=== PATIENT | male | born 1975 | race African-American/Black ===

== ENCOUNTER 2016-10-24 14:05 | Emergency (ER) | payer BC ==
[2016-10-24 14:11] VITALS: TEMP 100; BMI 33.3
[2016-10-24 14:55] LABS: URINE APPEARANCE CLEAR; URINE BILIRUBIN NEGATIVE (NEGATIVE); URINE BLOOD NEGATIVE (NEGATIVE); URINE COLOR LTYELLOW; URINE GLUCOSE (UA) NEGATIVE (NEGATIVE); URINE KETONE NEGATIVE (NEGATIVE); URINE LEUK ESTERASE NEGATIVE (NEGATIVE); URINE NITRITE NEGATIVE (NEGATIVE); URINE PROTEIN NEGATIVE (NEGATIVE); URINE UROBILINOGEN NEGATIVE E.U./dl (0.2-1.0)
[2016-10-24] MEDS ORDERED: SODIUM CHLORIDE 1,000 ML IV STA (17:16)
[2016-10-24] MEDS ORDERED: KETOROLAC TROMETHAMINE 30 MG/1 ML VIAL IVPUSH ONE (17:16)
[2016-10-24] MEDS ORDERED: ONDANSETRON 4 MG/2 ML VIAL IVPUSH ONE (17:16)
[2016-10-24] MEDS ORDERED: ACETAMINOPHEN 500 MG TABLET (FP) PO ONE (17:26)
[2016-10-24] MEDS ORDERED: ACETAMINOPHEN 325 MG TABLET (FP) ONE (17:41)
[2016-10-24] MEDS ORDERED: ONDANSETRON 4 MG/2 ML VIAL ONE (17:41)
[2016-10-24] MEDS ORDERED: KETOROLAC TROMETHAMINE 30 MG/1 ML VIAL ONE (17:41)
--- NOTE | 2016-10-24 17:45 | PDOC ---
History of Present Illness <Dutch Cha - Last Filed: 10/24/16 21:39> - General History Source: Patient Exam Limitations: No Limitations - History of Present Illness Travel History: No Initial Comments: 10/24/16 17:25 41-year-old male with no past medical history presents the ED with a 2 day complaint of chills, left lower quadrant cramping, and brown watery stool. Patient states has no GI disorders, recent travel, recent illness. Patient does state for the past year intermittently has been having blood-tinged stool and has a follow-up with a candy department manager and [place] on the . Patient denies dizziness, weakness, hemorrhoids, or homosexuality. Patient states takes no aspirin or blood thinners daily and denies any recent sick contacts. Timing/Duration: reports: constant, getting worse Quality: reports: mild, cramping Abdominal Pain Onset Location: reports: LLQ Pain Radiation: reports: no radiation Activities at Onset: reports: none Aggravating Factors: improves with: None Alleviating Factors: improves with: None <Pati Quintana - Last Filed: 10/26/16 07:38> - General Chief Complaint: Pain, Acute Stated Complaint: ABD PAIN Time Seen by Provider: 10/24/16 14:07 Past History <Dutch Cha - Last Filed: 10/24/16 21:39> - Past Medical History Other medical history: PT DENIES MEDICAL HX - Psycho/Social/Smoking Cessation Hx Anxiety: No Suicidal Ideation: No Smoking Status: No Smoking History: Never smoked Number of Cigarettes Smoked Daily: 0 Hx Alcohol Use: No Drug/Substance Use Hx: No Patient Lives Alone: No Lives with/in: parents <Pati Quintana - Last Filed: 10/26/16 07:38> - Past Medical History Allergies/Adverse Reactions: Allergies Allergy/AdvReac Type Severity Reaction Status Date / Time Shellfish Allergy Itching Verified 10/24/16 14:11 Home Medications: Ambulatory Orders Ciprofloxacin HCl [Cipro] 500 mg PO BID #20 tablet 10/24/16 Metronidazole [Flagyl -] 500 mg PO DAILY #20 tablet 10/24/16 Oxycodone HCl/Acetaminophen [Percocet 10-325 mg Tablet] 1 each PO Q6H PRN #20 tablet MDD 4 TABS 10/24/16 Abd/GI Specific PMHX - Complaint Specific PMHX Colitis: No Diverticulitis: No <Pati Quintana - Last Filed: 10/26/16 07:38> Review of Systems - Review of Systems Able to Perform ROS?: Yes Constitutional: Yes: Chills, Fever HEENTM: No: Symptoms Reported Respiratory: No: Symptoms reported Cardiac (ROS): No: Symptoms Reported ABD/GI: Yes: Blood Streaked Bowels, Diarrhea, Nausea, Abdominal cramping : No: Symptoms Reported Musculoskeletal: No: Symptoms Reported Integumentary: No: Symptoms Reported Neurological: No: Symptoms reported Endocrine: No: Symptoms Reported Hematologic/Lymphatic: No: Symptoms Reported <Pati Quintana - Last Filed: 10/26/16 07:38> *Physical Exam - Vital Signs Last Vital Signs Temp Pulse Resp BP Pulse Ox 100.0 F H 96 H 18 141/90 98 10/24/16 14:07 10/24/16 14:07 10/24/16 14:07 10/24/16 14:07 10/24/16 14:07 <Dutch Cha - Last Filed: 10/24/16 21:39> - Vital Signs Last Vital Signs Temp Pulse Resp BP Pulse Ox 100.0 F H 96 H 18 141/90 98 10/24/16 14:07 10/24/16 14:07 10/24/16 14:07 10/24/16 14:07 10/24/16 14:07 - Physical Exam General Appearance: Yes: Nourished, Appropriately Dressed. No: Apparent Distress HEENT: positive: EOMI, CHRIS. negative: Pale Conjunctivae Neck: positive: Supple Respiratory/Chest: positive: Lungs Clear, Normal Breath Sounds. negative: Respiratory Distress, Accessory Muscle Use Cardiovascular: positive: Regular Rhythm, Regular Rate. negative: Murmur Gastrointestinal/Abdominal: positive: Normal Bowel Sounds, Soft, Guarding (mild) , Tenderness (llq). negative: Distended, Hernia, Mass Musculoskeletal: negative: CVA Tenderness Integumentary: positive: Normal Color, Warm, Moist Neurologic: positive: Motor Strength 5/5 (ambulatory) <Pati Quintana - Last Filed: 10/26/16 07:38> ED Treatment Course - LABORATORY CBC & Chemistry Diagram: 10/24/16 17:29 10/24/16 17:29 - ADDITIONAL ORDERS Additional order review: Laboratory Results 10/24/16 10/24/16 10/24/16 18:28 17:29 14:33 Sodium 139 Potassium 5.2 H Chloride 104 Carbon Dioxide 29 Anion Gap 6 L BUN 14 Creatinine 1.2 Creat Clearance w eGFR > 60 Random Glucose 82 Lactic Acid 1.611 Calcium 9.0 Magnesium 2.2 Total Bilirubin 0.8 AST 23 ALT 37 Alkaline Phosphatase 77 Total Protein 8.0 Albumin 3.6 Urine Color Ltyellow Urine Appearance Clear Urine pH 5.0 Ur Specific [place] 1.016 Urine Protein Negative Urine Glucose (UA) Negative Urine Ketones Negative Urine Blood Negative Urine Nitrite Negative Urine Bilirubin Negative Urine Urobilinogen Negative Ur Leukocyte Esterase Negative 10/24/16 17:29 RBC 4.89 MCV 81.3 MCHC 32.9 RDW 15.5 MPV 8.4 Neutrophils % 71.2 Lymphocytes % 18.7 Monocytes % 9.4 Eosinophils % 0.4 Basophils % 0.3 - Medications Given in the ED: ED Medications Discontinued Medications Generic Name Dose Route Start Last Admin Trade Name Matty PRN Reason Stop Dose Admin Acetaminophen 975 mg 10/24/16 17:26 10/24/16 17:44 Tylenol - PO 10/24/16 17:27 975 mg ONCE ONE Administration Sodium Chloride 1,000 mls @ 1,000 mls/hr 10/24/16 17:16 10/24/16 17:45 Normal Saline - IV 10/24/16 18:15 1,000 mls/hr ASDIR STA Administration Ketorolac Tromethamine 30 mg 10/24/16 17:16 10/24/16 17:42 Toradol Injection - IVPUSH 10/24/16 17:17 30 mg ONCE ONE Administration Ondansetron HCl 4 mg 10/24/16 17:16 10/24/16 17:40 Zofran Injection IVPUSH 10/24/16 17:17 4 mg ONCE ONE Administration <Dutch Cha D - Last Filed: 10/24/16 21:39> - LABORATORY CBC & Chemistry Diagram: 10/24/16 17:29 10/24/16 17:29 - ADDITIONAL ORDERS Additional order review: Laboratory Results 10/24/16 14:33 Urine Color Ltyellow Urine Appearance Clear Urine pH 5.0 Ur Specific [place] 1.016 Urine Protein Negative Urine Glucose (UA) Negative Urine Ketones Negative Urine Blood Negative Urine Nitrite Negative Urine Bilirubin Negative Urine Urobilinogen Negative Ur Leukocyte Esterase Negative - RADIOLOGY Radiology Studies Ordered: Category Date Time Status ABDOMEN & PELVIS CT W/O CONTR [CT] Stat CT Scan 10/24/16 17:16 Ordered <LilianMuskegon - Last Filed: 10/26/16 07:38> Medical Decision Making - Medical Decision Making 10/24/16 17:29 Patient with complaints of chills, left lower quadrant cramping associated with diarrhea. Patient also states intermittent blood-streaked stool for the past year and denies alcohol use, history of PUD, or gastritis. Patient ordered for labs including lactic secondary to fever and elevated heart rate patient also ordered for CT of the abdomen, IV fluids, magnesium, and urine. 10/24/16 19:02 Patient endorsed to SERVANDO Cha. Patient awaiting CT results and lactic acid results. Patient otherwise comfortable with no complaints presently. If CT and lactic acid are negative patient will follow up with a candy department manager in [place] on the for colonoscopy as scheduled . <Pati Quintana - Last Filed: 10/26/16 07:38> *DC/Admit/Observation/Transfer - Discharge Dispostion Admit: No <Dutch Cha - Last Filed: 10/24/16 21:39> <Pati Quintana - Last Filed: 10/26/16 07:38> Diagnosis at time of Disposition: Colitis Diverticulitis Qualifiers: Diverticulitis site: unspecified part of intestinal tract Diverticulitis bleeding: without bleeding Diverticulitis complication: without perforation or abscess Qualified Code(s): K57.92 - Diverticulitis of intestine, part unspecified, without perforation or abscess without bleeding - Discharge Dispostion Disposition: HOME Condition at time of disposition: Stable - Prescriptions Prescriptions: Ciprofloxacin HCl [Cipro] 500 mg PO BID #20 tablet Metronidazole [Flagyl -] 500 mg PO DAILY #20 tablet Oxycodone HCl/Acetaminophen [Percocet 10-325 mg Tablet] 1 each PO Q6H PRN #20 tablet MDD 4 TABS PRN Reason: Severe Pain - Referrals Referrals: Lorenzo Fleming v [Primary Care Provider] - Steve Cid MD [Staff Physician] - - Patient Instructions Printed Discharge Instructions: DI for Colitis, DI for Diverticulitis Additional Instructions: FOLLOW UP WITH DR. CID (GI). CALL TO SCHEDULE APPOINTMENT. TAKE MEDICATIONS PRESCRIBED. DO NOT DRIVE, DRINK ALCOHOL, OR OPERATE HEAVY MACHINERY WHILE TAKING PERCOCET. DRINK LOTS OF WATER. AVOID ALCOHOL, SPICY FOODS , FOODS WITH SEEDS. ALSO, SCHEDULE APPOINTMENT TO SEE YOUR PRIMARY CARE PROVIDER. Print Language: ECUADOREAN - Post Discharge Activity Work/School Note: Back to Work
[2016-10-24 17:53] LABS: BASOPHIL 0.3 % (0-2.0); EOSINOPHIL 0.4 % (0-4.5); MCH 26.7 pg (25.7-33.7); MCHC 32.9 g/dl (32.0-35.9); MEAN CELL VOLUME 81.3 fl (80-96); MEAN PLT VOLUME 8.4 fl (7.5-11.1); NEUTROPHILS 71.2 % (42.8-82.8); PLATELET COUNT 251 K/MM3 (134-434); RDW 15.5 % (11.9-15.9); WHITE BLOOD COUNT 12.2 K/mm3 (4.0-10.0)
[2016-10-24 18:29] LABS: ALBUMIN 3.6 g/dl (3.4-5.0); ALK PHOS 77 U/L (45-117); ANION GAP 6 (8-16); BILIRUBIN,TOTAL 0.8 mg/dL (0.2-1.0); CO2 29 mmol/L (21-32); CREATININE 1.2 mg/dL (0.7-1.3); GLUCOSE,RANDOM 82 mg/dL (74-106); MAGNESIUM 2.2 mg/dL (1.8-2.4); SGOT/AST 23 U/L (15-37); SGPT/ALT 37 U/L (12-78)
[2016-10-24] MEDS ORDERED: CIPROFLOXACIN 250 MG TABLET (RESTRICTED TO ID) PO ONE (21:38)
[2016-10-24] MEDS ORDERED: metroNIDAZOLE 250 MG TABLET PO ONE (21:38)
[2016-10-24] MEDS ORDERED: metroNIDAZOLE 250 MG TABLET ONE (21:47)
[2016-10-24 22:06] VITALS: BP 129/78; PULSE 67
== END 2016-10-24 22:06 | disposition home or self-care (01) ==
LOC: JER 14:05
PROC: 3E0337Z Introduction of Electrolytic and Water Balance Substance into Peripheral Vein, Percutaneous Approach (ICD-10-PCS; principal; 2016-10-24)
PROC: 3E0333Z Introduction of Anti-inflammatory into Peripheral Vein, Percutaneous Approach (ICD-10-PCS; 2016-10-24)
PROC: 3E033GC Introduction of Other Therapeutic Substance into Peripheral Vein, Percutaneous Approach (ICD-10-PCS; 2016-10-24)
DX: K57.92 Diverticulitis of intestine, part unspecified, without perforation or abscess without bleeding (principal); K52.9 Noninfective gastroenteritis and colitis, unspecified
CPT/HCPCS: 36415; 74176-TC; 80053; 81003; 83605; 83735; 85025; 99283-25

== ENCOUNTER 2019-09-01 13:21 | Emergency (ER) | payer SELFPAY ==
[2019-09-01 13:29] VITALS: BP 118/76; PULSE 100; BMI 31.9
[2019-09-01] MEDS ORDERED: SODIUM CHLORIDE 1,000 ML IV STA (13:29)
--- NOTE | 2019-09-01 13:29 | PDOC ---
Rapid Medical Evaluation Time Seen by Provider: 09/01/19 13:26 Medical Evaluation: Allergies Allergy/AdvReac Type Severity Reaction Status Date / Time Shellfish Allergy Itching Verified 10/24/16 14:11 09/01/19 13:26 CC: abdominal pain with NBNB vomit x1 and light brown diarrhea today. No recent travel. PE: diffusely tender abdomen. No guarding. HR-110, T-100.6 Orders: labs, Influenza, NS, urine Patient will proceed to ED for further evaluation. Discharge Disposition - Diagnosis Abdominal pain - Referrals - Patient Instructions - Post Discharge Activity
[2019-09-01 14:36] LABS: BASO % 0.2 % (0-2.0); EOS % 0.1 % (0-4.5); HEMATOCRIT 42.1 % (35.4-49); HEMOGLOBIN 13.6 GM/dL (11.7-16.9); MCHC 32.3 g/dl (32.0-35.9); MEAN CELL VOLUME 83.6 fl (80-96); MEAN PLT VOLUME 8.7 fl (7.5-11.1); MONO % 5.3 % (3.8-10.2); NEUT % 88.4 % (42.8-82.8); PLATELET COUNT 210 K/MM3 (134-434); RBC 5.03 M/mm3 (4.00-5.60); RDW 15.3 % (11.9-15.9); WHITE BLOOD COUNT 7.3 K/mm3 (4.0-10.0)
[2019-09-01] MEDS ORDERED: ONDANSETRON 4 MG/2 ML VIAL IVPUSH ONE (14:52)
[2019-09-01] MEDS ORDERED: ONDANSETRON 4 MG/2 ML VIAL ONE (15:00)
[2019-09-01 15:01] LABS: ALBUMIN 3.4 g/dl (3.4-5.0); BLOOD UREA NITROGEN 16.6 mg/dL (7-18); CALCIUM 8.4 mg/dL (8.5-10.1); CREATININE 1.3 mg/dL (0.55-1.3); POTASSIUM 3.7 mmol/L (3.5-5.1)
--- NOTE | 2019-09-01 15:12 | PDOC ---
History of Present Illness - General Chief Complaint: Pain Stated Complaint: VOMITING Time Seen by Provider: 09/01/19 13:26 History Source: Patient - History of Present Illness Initial Comments: 09/01/19 15:15 Pt is a 44 y/o male who presents to the ED with complaint of abdominal pain, nonbilious and nonbloody diarrhea and vomiting since about 3 am. The patient states that he woke up with this problem. He denies any recent travel. He states he has not eaten anything that could have made him sick. He denies any sick contacts. He denies any fevers or chills. He does admit to not getting a flu shot this year. He states he is having some epigastric abdominal pain. He denies any blood in his stool or vomit. He states his stool was a light brown color. Past History - Past Medical History Allergies/Adverse Reactions: Allergies Allergy/AdvReac Type Severity Reaction Status Date / Time Shellfish Allergy Itching Verified 09/01/19 13:29 Home Medications: Ambulatory Orders Ciprofloxacin HCl [Cipro] 500 mg PO BID #20 tablet 10/24/16 Oxycodone HCl/Acetaminophen [Percocet 10-325 mg Tablet] 1 each PO Q6H PRN #20 tablet MDD 4 TABS 10/24/16 metroNIDAZOLE [Flagyl -] 500 mg PO DAILY #20 tablet 10/24/16 COPD: No - Psycho Social/Smoking Cessation Hx Smoking Status: No Smoking History: Never smoked Number of Cigarettes Smoked Daily: 0 Hx Alcohol Use: No Drug/Substance Use Hx: No Review of Systems - Review of Systems Able to Perform ROS?: Yes Constitutional: Yes: Fever (denies fever at home). No: Chills, Diaphoresis, Loss of Appetite Respiratory: No: Cough, Shortness of Breath Cardiac (ROS): No: Chest Pain, Edema, Palpitations ABD/GI: Yes: Diarrhea, Nausea, Vomiting. No: Abdominal Distended, Abd. Pain w/ defecation, Blood Streaked Bowels, Constipated, Difficulty Swallowing, Rectal Bleeding, Indigestion, Tarry Stools : No: Burning, Dysuria, Discharge, Frequency, Flank Pain, Hematuria, Incontinence, Pain, Urgency, Testicular Swelling, Testicular Pain Musculoskeletal: No: Back Pain, Muscle Pain Integumentary: No: Rash Neurological: No: Headache, Numbness, Tingling, Weakness Psychiatric: No: Anxiety, Depression *Physical Exam - Vital Signs Last Vital Signs Temp Pulse Resp BP Pulse Ox 100.6 F H 100 H 18 118/76 99 09/01/19 13:25 09/01/19 13:25 09/01/19 13:25 09/01/19 13:25 09/01/19 13:25 - Physical Exam General Appearance: Yes: Nourished, Appropriately Dressed. No: Apparent Distress, Disheveled HEENT: positive: EOMI Neck: positive: Supple. negative: Decreased range of motion Respiratory/Chest: positive: Lungs Clear, Normal Breath Sounds. negative: Respiratory Distress Cardiovascular: positive: Regular Rhythm, Regular Rate, S1, S2 Gastrointestinal/Abdominal: positive: Normal Bowel Sounds, Tender (mild epigastric abdominal pain to palpation), Soft, Tenderness. negative: Decreased BS, Distended, Guarding, Rebound, Mass Musculoskeletal: positive: Normal Inspection. negative: CVA Tenderness, CVA Tenderness (R), CVA Tenderness (L) Extremity: positive: Normal Capillary Refill ED Treatment Course - LABORATORY CBC & Chemistry Diagram: 09/01/19 14:15 09/01/19 13:58 - ADDITIONAL ORDERS Additional order review: Laboratory Results 09/01/19 09/01/19 13:58 13:58 Sodium 138 Potassium 3.7 Chloride 106 Carbon Dioxide 27 Anion Gap 6 L BUN 16.6 Creatinine 1.3 Est GFR (CKD-EPI)AfAm 75.84 Est GFR (CKD-EPI)NonAf 65.43 Random Glucose 101 Calcium 8.4 L Total Bilirubin 1.0 AST 31 ALT 91 H Alkaline Phosphatase 75 Total Protein 8.0 Albumin 3.4 Lipase 98 09/01/19 14:15 RBC 5.03 MCV 83.6 MCHC 32.3 RDW 15.3 MPV 8.7 Neutrophils % 88.4 H D Lymphocytes % 6.0 L D Monocytes % 5.3 Eosinophils % 0.1 Basophils % 0.2 - Medications Given in the ED: ED Medications Discontinued Medications Generic Name Dose Route Start Last Admin Trade Name Freq PRN Reason Stop Dose Admin Sodium Chloride 1,000 mls @ 1,000 mls/hr 09/01/19 13:29 09/01/19 14:18 Normal Saline - IV 09/01/19 14:28 1,000 mls/hr ASDIR STA Administration Ondansetron HCl 4 mg 09/01/19 14:52 09/01/19 15:10 Zofran Injection IVPUSH 09/01/19 14:53 4 mg ONCE ONE Administration Medical Decision Making - Medical Decision Making 09/01/19 16:03 Pt feeling a lot better and would like to try a PO challenge. He was given crackers and juice. His labs are all unremarkable for acute pathology. I will re-evaluate the patient after he eats and drink. 09/01/19 16:42 The patient was found to be febrile at 101.4F rectal and 101.3F oral. He was given Toradol 15mg IV and his temp now is 100.8F. He feels well, tolerated his PO challenge and would like to go home. He has not had any vomiting or diarrhea while in the ED. The patient will be discharged and advised to eat a BRAT diet, take tylenol or ibuprofen for fever or bodyaches. He has been encouraged to increase his fluid intake. He understands and agrees with treatment and plan. He will follow up with his primary care doctor within 1-2 days for repeat evaluation or return to the ED for worsening symptoms. Discharge - Discharge Information Problems reviewed: Yes Clinical Impression/Diagnosis: Abdominal pain, Gastroenteritis and colitis, viral Condition: Stable Disposition: HOME - Follow up/Referral Referrals: Lorenzo Fleming v [Non Staff, Medical] - - Patient Discharge Instructions Patient Printed Discharge Instructions: DI for Viral Gastroenteritis -- Adult, [place] Diet Additional Instructions: Take Tylenol or ibuprofen (Motrin) for fever or bodyaches as instructed on the package. Drink plenty of fluids and eat a bland diet. You can advance your diet as you feel comfortable. Follow up with your primary doctor within 1-2 days for repeat evaluation. - Post Discharge Activity Work/Back to School Note: Back to Work
[2019-09-01 15:23] LABS: PH,URINE 5.5 (5.0-8.0); URINE APPEARANCE CLEAR; URINE BILIRUBIN NEGATIVE (NEGATIVE); URINE COLOR YELLOW; URINE GLUCOSE (UA) NEGATIVE (NEGATIVE); URINE KETONE NEGATIVE (NEGATIVE); URINE LEUK ESTERASE NEGATIVE (NEGATIVE); URINE NITRITE NEGATIVE (NEGATIVE); URINE PROTEIN TRACE (NEGATIVE)
[2019-09-01] MEDS ORDERED: KETOROLAC TROMETHAMINE 15 MG/ML VIAL IVPUSH ONE (16:16)
[2019-09-01 16:19] VITALS: TEMP 101.4
[2019-09-01] MEDS ORDERED: KETOROLAC TROMETHAMINE 15 MG/ML VIAL ONE (16:19)
== END 2019-09-01 17:29 | disposition home or self-care (01) ==
LOC: JER 13:21
PROC: 3E0337Z Introduction of Electrolytic and Water Balance Substance into Peripheral Vein, Percutaneous Approach (ICD-10-PCS; principal; 2019-09-01)
PROC: 3E0333Z Introduction of Anti-inflammatory into Peripheral Vein, Percutaneous Approach (ICD-10-PCS; 2019-09-01)
PROC: 3E033GC Introduction of Other Therapeutic Substance into Peripheral Vein, Percutaneous Approach (ICD-10-PCS; 2019-09-01)
DX: A08.4 Viral intestinal infection, unspecified (principal); B97.89 Other viral agents as the cause of diseases classified elsewhere; Z91.013 Allergy to seafood
CPT/HCPCS: 36415; 80053; 81003; 83690; 85025; 87086; 87804; 99282-25; J7030

== ENCOUNTER 2020-10-17 11:59 | Emergency (ER) | payer SELFPAY ==
[2020-10-17 12:25] VITALS: BP 149/92; PULSE 83; TEMP 97; BMI 31.6
== END 2020-10-17 12:55 | disposition home or self-care (01) ==
LOC: JER 11:59
DX: U07.1 COVID-19 (principal)
CPT/HCPCS: 99284-25; C9803; U0003